=== PATIENT | female | born 1995 | race Two or more races ===

== ENCOUNTER 2016-04-25 18:03 | Emergency (ER) | payer MEDICAID ==
[~2016-04-25] VITALS: Ht 162.6 cm; Wt 68.0 kg
[~2016-04-25 18:03] MED LIST: ANTI-ITCH28 G1 TP; AUGMENTIN 875-1 EAC1 ORAL; AZITHROMYCIN250 MG ORAL; BENADRYL25 M3 PO; BENZOYL PEROXID TP; CLOTRIMAZOLE AF30 GM TOPIC; IBUPROFEN600 MG ORAL; MEDROL DOSEPAK4 MG ORAL; NKM; PROMETHAZINE-D118 ML ORAL; SILVADENE CREAM50 GM TOP; TRAMADOL HCL50 MG ORAL; TRIAMCINOLONE A60 M1 TP; ZANTAC150 MG ORAL
[2016-04-25] MEDS ORDERED: PREDNISONE20 MG ORAL (18:52)
[2016-04-25] MEDS ORDERED: ALBUTEROL SULF8.5 GM INH (18:52)
[2016-04-25] MEDS ORDERED: AUGMENTIN 875-1 EAC1 ORAL (18:52)
[2016-04-25] MEDS ORDERED: PROMETHAZINE-D118 ML ORAL (18:52)
[2016-04-25] MEDS ORDERED: TdaP Vaccine 0.5ml Syr IM ONE (19:00)
[2016-04-25 19:18] VITALS: BP 124/78
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
== END 2016-04-25 19:19 | disposition home or self-care (01) ==
LOC: EMR 18:43
DX: J20.9 Acute bronchitis, unspecified (principal); Z23 Encounter for immunization; F17.200 Nicotine dependence, unspecified, uncomplicated; S61.232A Puncture wound without foreign body of right middle finger without damage to nail, initial encounter; S60.511A Abrasion of right hand, initial encounter; Z88.6 Allergy status to analgesic agent; E11.9 Type 2 diabetes mellitus without complications; J45.909 Unspecified asthma, uncomplicated; W50.3XXA Accidental bite by another person, initial encounter; Y93.9 Activity, unspecified; Y92.9 Unspecified place or not applicable
CPT/HCPCS: 90471; 90715; 99284